=== PATIENT | female | born 1980 | race Caucasian/White ===

== ENCOUNTER 2019-06-08 07:59 | Inpatient (IN) | payer BC ==
[2019-05-30 14:59] VITALS: BMI 22.3
--- NOTE | 2019-06-02 10:26 | HP ---
Admitting History and Physical - Primary Care Physician PCP: Vega Castillo - Admission Chief Complaint: Breast cancer gene positive History of Present Illness: 38 year old prmenapausal female with strong family H/O breast cancer and BRCA2 positive. 04/28/2019 Mammogram showed 4 mm assymetry right lateral retroareolar area. Us favored complicated cyst but additional imaging was advised. Right diagnostic mammogram and US 04/2019 showed this area effaced on spot compression and targeted US confirms 4mm cyst cluster rght 9:00 2 cm FN Birad 2. Breast MRI 12/12/2018 Birad1. History Source: Patient Limitations to Obtaining History: No Limitations - Past Medical History ...LMP: 04/25/19 - Smoking History Smoking history: Never smoked Have you smoked in the past 12 months: No - Alcohol/Substance Use Hx Alcohol Use: No Home Medications - Allergies Allergies/Adverse Reactions: Allergies Allergy/AdvReac Type Severity Reaction Status Date / Time No Known Allergies Allergy Verified 05/30/19 14:59 - Home Medications Home Medications: Ambulatory Orders NK [No Known Home Medication] 05/30/19 Family Medical History Family Hx Cancer: Mother (Bilateral breast cancer 46/64 BRCA+) Other Family History: maternal aunt breast ca 62 and ovarian at 69. mat 2nd cousins breast ca 40's and 60's. mat 3rd cousin breast ca 40's BRCA 2 + Physical Examination Constitutional: Yes: No Distress Breast(s): Yes: Other (B sized breast cups no palpable masses or adenopathy bilaterally symmetrical) Problem List - Problems (1) BRCA gene positive Code(s): Z15.01 - GENETIC SUSCEPTIBILITY TO MALIGNANT NEOPLASM OF BREAST; Z15.09 - GENETIC SUSCEPTIBILITY TO OTHER MALIGNANT NEOPLASM Assessment/Plan Bilateral total mastectomies alloderm implant reconstruction
[2019-06-08] MEDS ORDERED: LIDOCAINE HCL 1%, 10 MG/ML (20ML VIAL) ONE (09:20)
[2019-06-08] MEDS ORDERED: BUPIVACAINE HCL 0.25% 125 MG/50 ML VIAL ONE (09:20)
[2019-06-08] MEDS ORDERED: BUPIVACAINE LIPOSOME/PF (EXPAREL) 266 MG/20 ML VIAL ONE (09:22)
[2019-06-08] MEDS ORDERED: fentaNYL CITRATE 250 MCG/5 ML VIAL ONE (10:01)
[2019-06-08] MEDS ORDERED: ROCURONIUM BROMIDE 50 MG/5 ML SYRINGE ONE ×2 (10:02→12:03)
[2019-06-08] MEDS ORDERED: PROPOFOL 20 ML ONE ×6 (10:02→12:38)
[2019-06-08] MEDS ORDERED: MIDAZOLAM HCL 2 MG/2 ML SINGLE DOSE VIAL ONE (10:02)
[2019-06-08] MEDS ORDERED: ceFAZolin SODIUM 1 GM VIAL ONE (10:46)
[2019-06-08] MEDS ORDERED: DESFLURANE GAS 240 ML BOTTLE IH ONE (10:46)
[2019-06-08] MEDS ORDERED: ONDANSETRON 4 MG/2 ML VIAL ONE (10:46)
[2019-06-08] MEDS ORDERED: KETOROLAC TROMETHAMINE 30 MG/1 ML VIAL ONE (10:46)
[2019-06-08] MEDS ORDERED: DEXAMETHASONE SOD PHOSPHATE 4 MG/1 ML VIAL ONE (10:46)
[2019-06-08] MEDS ORDERED: ePHEDrine SULFATE 50 MG/1 ML AMPULE ONE (11:01)
[2019-06-08] MEDS ORDERED: LIDOCAINE 1%/EPI 1:100000 (20 ML MULTI DOSE VIAL) ONE (12:31)
[2019-06-08] MEDS ORDERED: BUPIVACAINE LIPOSOME/PF (EXPAREL) 266 MG/20 ML VIAL NR ONE (12:50)
[2019-06-08] MEDS ORDERED: BUPIVACAINE HCL/PF 0.25% (2.5MG/ML) 10 ML VIAL IJ ONE (12:50)
[2019-06-08] MEDS ORDERED: ONDANSETRON 4 MG/2 ML VIAL IVPUSH PRN ×2 (13:20→14:35)
[2019-06-08] MEDS ORDERED: ZOLPIDEM TARTRATE 5 MG TABLET PO PRN (13:20)
[2019-06-08] MEDS ORDERED: DEXTROSE 5%-0.45% SALINE 1,000 ML IV SCH (13:30)
--- NOTE | 2019-06-08 13:49 | OP ---
Operative Note - Note: Operative Date: 06/08/19 Pre-Operative Diagnosis: Genetic predispostion for breast cancer Operation: Bilateral prophylactic mastectomy. Bilateral breast reconstruction with alloderm and implants Post-Operative Diagnosis: Same as Pre-op Surgeon: Vega Castillo Gold Marker: Castillo Peralta Anesthesiologist/HEALTH TEACHER: Benton Pradhan Anesthesia: General Drains & Tubes with Location: Bilateral breast drains x 2 Operative Report Dictated: Yes
--- NOTE | 2019-06-08 13:50 | SURG ---
Surgery Movement Assembler Note Movement Assembler: Natalio Miller PA-C Date of Service: 06/08/19 Diagnosis: Genetic predisposition for breast cancer Procedure: Bilateral breast reconstruction with alloderm and implants s/p mastectomy I was present for the entirety of the operative procedure. For further detail, please refer to operative report. Visit type - Case Type Case Type: Scheduled - Emergency Emergency Visit: No - New patient This patient is new to me today: Yes Date on this admission: 06/08/19 - Critical Care Critical Care patient: No
[2019-06-08] MEDS ORDERED: PROMETHAZINE HCL 25 MG/1 ML VIAL IVPUSH PRN (14:35)
[2019-06-08] MEDS ORDERED: oxyCODONE HCL 5 MG TABLET PO PRN (14:35)
[2019-06-08] MEDS ORDERED: ACETAMINOPHEN 1000 MG/100 ML VIAL (NON FORMULARY) IVPB PRN (14:36)
[2019-06-08] MEDS ORDERED: LACTATED RINGERS SOLUTION 1,000 ML IV SCH (14:45)
[2019-06-08] MEDS: CEFAZOLIN 1 GM/D5W 1 GM/50 ML BAG IVPB SCH ×2 (15:45→20:34)
[2019-06-08] MEDS: oxyCODONE HCL 5 MG TABLET PO PRN (21:41)
[2019-06-09] MEDS: ACETAMINOPHEN 325 MG TABLET (FP) PO PRN ×2 (02:04→23:10)
[2019-06-09] MEDS: CEFAZOLIN 1 GM/D5W 1 GM/50 ML BAG IVPB SCH ×4 (02:04→21:15)
[2019-06-09] MEDS: oxyCODONE HCL 5 MG TABLET PO PRN ×4 (02:14→23:09)
[2019-06-09 07:45] LABS: HEMATOCRIT 28.5 % (32.4-45.2); HEMOGLOBIN 9.4 GM/dl (10.7-15.3); MCHC 32.8 g/dl (32.0-36.0); MEAN CELL VOLUME 91.5 fl (80-96); MEAN PLT VOLUME 8.7 fl (7.5-11.1); PLATELET COUNT 234 K/MM3 (134-434); RBC 3.12 M/mm3 (3.60-5.2); RDW 12.6 % (11.6-15.6); WHITE BLOOD COUNT 9.6 K/mm3 (4.0-10.8)
--- NOTE | 2019-06-09 08:01 | PN ---
Progress Note (short form) - Note Progress Note: Post op day#1.S/P Bilateral mastectomy with reconstruction under Ga uneventful.Patient stable and has some pain for which she is on medication.No any anesthesia related problem.Patient DC from the anesthesia care.
--- NOTE | 2019-06-09 08:07 | PN ---
Progress Note (short form) - Note Progress Note: POD 1, s/p Bilateral prophylactic mastectomy. Bilateral breast reconstruction with alloderm and implants Pt seen and examined. Reports she is feeling well. Pain is well controlled. Has been oob to the restroom. Voiding without issue. Tolerated dinner with no n/v. Denies cp/sob. Vital Signs Temp 98.7 F 06/09/19 05:00 Pulse 96 H 06/09/19 05:00 Resp 18 06/09/19 05:00 BP 91/50 L 06/09/19 05:00 Pulse Ox 93 L 06/09/19 01:00 Intake & Output 06/08/19 06/08/19 06/09/19 11:59 23:59 11:59 Intake Total 1200 1575 Output Total 480 470 Balance 1200 1095 -470 Weight 122 lb Intake: IV 1200 1075 Lactated Ringers Solution 375 1,000 ml @ 125 mls/hr IV ASDIR BEN Rx#: [id number] IVPB 100 Oral 400 Output: Drainage 80 220 #1 15 #2 100 #3 100 #4 5 Urine 400 250 Void 400 250 Other: Voiding Method Toilet Height 5 ft 2 in Body Mass Index (BMI) 22.3 Weight Measurement Method Standing Scale CBC, BMP 06/09/19 07:35 Gen: awake, alert, nad Resp: unlabored on RA Chest: + b/l ecchymosis, + b/l edema, skin flaps/areola well perfused and viable. Dressings c/d/i, inframammary crease steristrips intact with no erythema or drainage, b/ll axilla wounds with steristrips intact, clean and dry. Drains x4 in place, tubing stripped, scant serosanguinous drainage in reservoirs. A/P: 38 y/o F w/ strong family H/O breast cancer and BRCA2 positive, now POD 1, s/p Bilateral prophylactic mastectomy. Bilateral breast reconstruction with alloderm and implants. afebrile, slightly tachy (likly due to pain?), bp in 90s-low 100s Rey outputs #1->5ml overnight, 15ml since OR #2->30ml overnight, 100ml since OR #3->30ml overnight, 100ml since OR #4->0ml overnight, 5ml since OR Dressings changed, tubing stripped -Labs stable -Monitor and record drain outputs -Keep bra/dressings c/d/i -Remainder of care per Dr Castillo d/w attending Dr Peralta
--- NOTE | 2019-06-09 09:39 | PN ---
Progress Note, Physician Chief Complaint: S/P bilateral mastectomy with implant and alloderm reconstruction POD#1 History of Present Illness: Patient was seen at the bedside and reports discomfort near upper outer poles bilaterally but is otherwise tolerating po well. - Current Medication List Current Medications: Active Medications Acetaminophen (Tylenol -) 650 mg PO Q4H PRN PRN Reason: FEVER Last Admin: 06/09/19 02:04 Dose: 650 mg Acetaminophen (Ofirmev Injection -) 1,000 mg IVPB Q6H PRN PRN Reason: PAIN LEVEL 6-10 Last Admin: 06/08/19 20:22 Dose: 1,000 mg Cefazolin Sodium (Ancef 1 Gm Premixed Ivpb -) 1 gm in 50 mls @ 100 mls/hr IVPB Q6H-IV BEN Stop: 06/15/19 15:44 Last Admin: 06/09/19 08:25 Dose: 100 mls/hr Dextrose/Sodium Chloride (D5-1/2ns -) 1,000 mls @ 100 mls/hr IV ASDIR BEN Ondansetron HCl (Zofran Injection) 4 mg IVPUSH Q6H PRN PRN Reason: NAUSEA AND/OR VOMITING Last Admin: 06/08/19 21:41 Dose: 4 mg Oxycodone HCl (Roxicodone -) 5 mg PO Q4H PRN PRN Reason: PAIN LEVEL 6-10 Last Admin: 06/09/19 08:24 Dose: 5 mg Zolpidem Tartrate (Ambien -) 5 mg PO HS PRN PRN Reason: Insomnia - Objective Vital Signs: Vital Signs Temperature 98.7 F 06/09/19 05:00 Pulse Rate 96 H 06/09/19 05:00 Respiratory Rate 18 06/09/19 05:00 Blood Pressure 91/50 L 06/09/19 05:00 O2 Sat by Pulse Oximetry (%) 95 06/09/19 08:45 Constitutional: Yes: Well Nourished, Calm Breast(s): Yes: Other (Flaps with minimal ecchymosis. Nipple/areola complex with good color. Dressing C/D/I. JPs with serosanginous discharge bilaterally.) Labs: CBC, BMP 06/09/19 07:35 Problem List - Problems (1) BRCA gene positive Code(s): Z15.01 - GENETIC SUSCEPTIBILITY TO MALIGNANT NEOPLASM OF BREAST; Z15.09 - GENETIC SUSCEPTIBILITY TO OTHER MALIGNANT NEOPLASM Assessment/Plan A: S/P bilateral mastectomy with implant reconstruction POD#1 Doing well after surgery P: OOB today with assistance AXBX and Pain control as ordered STEVE training Plan for discharge in am
[2019-06-10] MEDS: CEFAZOLIN 1 GM/D5W 1 GM/50 ML BAG IVPB SCH ×2 (02:10→08:43)
[2019-06-10] MEDS: oxyCODONE HCL 5 MG TABLET PO PRN (08:41)
[2019-06-10] MEDS: ACETAMINOPHEN 325 MG TABLET (FP) PO PRN (08:42)
[2019-06-10 09:35] VITALS: BP 100/60; PULSE 68; TEMP 97.8
--- NOTE | 2019-06-12 15:51 | OP ---
DATE OF OPERATION: 06/08/2019 PREOPERATIVE DIAGNOSIS: Genetic susceptibility to breast cancer, BRCA2 positive. POSTOPERATIVE DIAGNOSIS: Genetic susceptibility to breast cancer, BRCA2 positive. PROCEDURE: Bilateral total nipple-sparing mastectomies through an inframammary approach with bilateral direct implant reconstruction using acellular dermal matrix. ANESTHESIA: General endotracheal anesthesia. PRIMARY SURGEON: Pat Daly M.D. SOILS TECHNICIAN: Nathaniel Lowe Primary surgeon for the bilateral direct implant reconstructions with acellular dermal matrix is Pat Peralta M.D., with his assistant strength coach Nathaniel Smith COMPLICATIONS: There were no complications. DESCRIPTION OF PROCEDURE: Briefly, the patient is a 38-year-old G2, P2 premenopausal female of [place] descent who has a family history with her mother who had bilateral breast cancer at age 46 and age 54, and her maternal aunt had breast cancer at age 62, and ovarian cancer at age 69. She has 2 maternal second cousins who had breast cancer and a maternal third cousin tested BRCA2 positive. The patient herself tested BRCA2 positive in August of 2018. She had negative mammography in May of 2018 and a negative MRI in November of 2018. She was seen in the office regarding risk reduction strategies for breast cancer and decided to go forward with bilateral risk reduction prophylactic nipple sparing mastectomies. She was well aware of the risks of leaving some breast tissue . We do retroareolar biopsies at the time of surgery; if these show cancer, we would remove the nipples. She understood the lack of any evidence shown for doing prophylactic sentinel lymph node biopsy. All risks, complications of the procedure were explained to the patient including risk of skin flap necrosis, nipple loss, hematoma, and infection, and she consented to move forward with the procedure. She was seen by Dr. Peralta preoperatively regarding the implant reconstruction. The patient is brought in for the procedure on June 08, 2019. In the holding area, site verification was made, and informed consent was obtained. She was marked preoperatively by the plastic surgeon. She was brought in to the operating room and laid on the OR table in the supine position. Venodynes were placed on the lower extremities prior to induction. She received 2 g of Ancef prior to incision. Both breasts were sterilely prepped and draped in the usual fashion, and she underwent general endotracheal anesthesia. The left mastectomy was first performed after timeout was performed. An inframammary incision was made about 9 cm in length in the inframammary fold, and then skin edges were everted, and the breast was retracted inferiorly using Winona clamps. The skin flap was raised using the PEEK radiofrequency device superiorly to the level of the clavicle, medially to the level of the sternum, laterally to the level of the latissimus, and inferiorly below the level of the inframammary fold. The breast was taken out off pectoralis major muscle using electrocautery from inferomedial to superolateral, completely removed intact. The specimen was removed and oriented with a long lateral, short superior suture, and sent to pathology in formalin as specimen. The skin flaps were inspected to remove all gross breast tissue. A retroareolar biopsy was taken underneath the left nipple areolar complex, sent for frozen section and came back negative so the nipple was spared. Hemostasis was achieved, and the wound was copiously irrigated with warm, sterile saline. At this point the right nipple sparing mastectomy was performed through a symmetrical 9-cm inframammary incision on the right side in the inframammary fold. Skin edges were everted and the breast was retracted inferiorly using Winona clamps. The skin flap was raised using the PEEK radiofrequency device superiorly to the level of the clavicle, medially to the level of the sternum, laterally to the level of the latissimus, and inferiorly to the level of the inframammary fold. The breast was taken down off the pectoralis major muscle using electrocautery from inferomedial to superolateral and completely removed intact. It was oriented with a long lateral, short superior suture, and weighed and then sent to pathology in formalin as right breast total mastectomy. Skin flaps were trimmed for a good cosmetic result, and they were inspected to remove all gross remaining breast tissue. A retroareolar biopsy was taken underneath the right nipple areolar complex, sent for frozen section, came back negative, so the right nipple was spared. Hemostasis was achieved, and the wound was copiously irrigated with warm, sterile saline. At this point, Dr. Peralta became the primary surgeon, and he performed bilateral subpectoral direct implant reconstruction using acellular dermal matrix sutured into the inferolateral aspects of both pectoralis major muscles to allow for the direct implant reconstruction. Two Mao drains were placed around each implant and brought through separate stab incisions on the lateral skin folds and secured in place using 3-0 nylon suture. All wounds will be closed by plastic surgery using dissolvable monofilament suture. Mastisol Steri-Strips were applied over the wounds, and she will be extubated and brought to the post anesthesia care unit. All sponge and needle counts were correct at this point in the case, and estimated blood loss was about 100 mL. She was hemodynamically stable throughout. The patient will be admitted postoperatively for pain and wound management. She did have Exparel as a chest wall block along the pectoralis muscle chest wall and subcutaneous tissues for postoperative pain relief. We did use the SPY skin perfusion device during the case showing good skin perfusion on both skin flaps and nipple areolar complexes at the end of the implant reconstruction. PAT DALY M.D. [id number]
--- NOTE | 2019-06-12 15:59 | PATH ---
Surgical Pathology Report Patient Name: ALEE RUCKER Med. Rec. #: [id number] /Age/Gender: 1980 (Age: 38) / F Account: [id number] Location: [facility] Taken: 06/08/2019 Received: 06/08/2019 Reported: 06/12/2019 Physicians: Vega Castillo M.D. Specimen(s) Received A: RIGHT BREAST RETROAREOLAR BIOPSY (FS) B: LEFT BREAST RETROAREOLAR BIOPSY (FS) C: RIGHT BREAST MASTECTOMY D: LEFT BREAST MASTECTOMY E: LEFT BREAST EXTRA MAMMARY NIPPLE F: RIGHT BREAST EXTRA MAMMARY NIPPLE Clinical History Genetic susceptibility of breast cancer Intraoperative Consult Diagnosis A. Right breast retroareolar biopsy, frozen section: Negative for malignancy. B. Left breast retroareolar biopsy, frozen section: Negative for malignancy. Sumit Escobar M.D. 06/08/19 Final Diagnosis A. RETROAREOLA, RIGHT BREAST, BIOPSY (FS): BENIGN BREAST TISSUE; NEGATIVE FOR MALIGNANCY. B. RETROAREOLA, LEFT BREAST, BIOPSY (FS): BENIGN BREAST TISSUE; NEGATIVE FOR MALIGNANCY. C. BREAST, RIGHT, NIPPLE-SPARING MASTECTOMY: BENIGN BREAST TISSUE SHOWING FIBROCYSTIC CHANGES INCLUDING MICROCYSTS WITH APOCRINE METAPLASIA AND USUAL DUCTAL HYPERPLASIA (UDH) AND COLUMNAR CELL CHANGE. D. BREAST, LEFT, NIPPLE-SPARING MASTECTOMY: BENIGN BREAST TISSUE SHOWING FIBROCYSTIC CHANGES INCLUDING MICROCYSTS AND USUAL DUCTAL HYPERPLASIA (UDH) AND FIBROADENOMATOID CHANGE. E. EXTRAMAMMARY NIPPLE, RIGHT BREAST, EXCISION: EXTRAMAMMARY NIPPLE. F. THE EXTRAMAMMARY NIPPLE, LEFT BREAST, EXCISION: EXTRAMAMMARY NIPPLE. Electronically Signed Marisol Escobar M.D. Gross Description A. Received fresh for frozen section evaluation, labeled "right breast retroareolar biopsy" is a 0.5 x 0.4 x 0.2 cm portion of red-cadet tissue. Frozen section is performed on the specimen. The frozen section residue is entirely submitted in one cassette. B. Received fresh for frozen section evaluation, labeled "left breast retroareolar biopsy" is a 0.8 x 0.6 x 0.2 cm portion of red-cadet tissue. Frozen section is performed on the specimen. The frozen section residue is entirely submitted in one cassette. C. Received in formalin, labeled "right mastectomy," is a 212 gram, 12.5 x 12.5 x 3.0 cm. right mastectomy specimen with a short suture marking the superior aspect and a long suture marking the lateral aspect of the specimen, per the surgeon. There is no skin or nipple present. The deep margin is inked black and the anterior soft tissue margin is inked blue. The specimen is serially sectioned from lateral to medial. Sectioning reveals multifocal dense white fibrous tissue. Public Administration Teacher sections are submitted in 14 cassettes as follows: 1-3-upper outer quadrant; 4-6-lower outer quadrant; 7-9-upper inner quadrant; 10-12-lower inner quadrant; 13-anterior soft tissue margin; 14-deep margin. D. Received in formalin, labeled "left breast mastectomy," is a 229 gram, 15.0 x 11.5 x 3.2 cm. left mastectomy specimen with a short suture marking the superior aspect and a long suture marking the lateral aspect of the specimen, per the surgeon. There is no skin or nipple present. The deep margin is inked black and the anterior soft tissue margin is inked blue. The specimen is serially sectioned from medial to lateral. Sectioning reveals abundant dense, white, focally firm fibrous tissue. Public Administration Teacher sections are submitted in 15 cassettes as follows: 1-3-upper outer quadrant; 4-6-lower outer quadrant; 7-8-upper inner quadrant; 9-13-lower inner quadrant; 14-anterior soft tissue margin; 15-deep margin. Time to formalin fixation: 30 minutes Total formalin fixation time: Approximately 61 hours. E. Received in formalin labeled "right breast extramammary nipple," is a 0.6 x 0.3 cm cadet-brown, elliptical, unoriented portion of skin excised to depth of 1.0 cm. No discrete epidermal lesion is identified. The specimen is bisected and entirely submitted in one cassette. F. Received in formalin labeled "left breast extramammary nipple," is a 0.5 x 0.2 cm cadet, elliptical, unoriented portion of skin excised to depth of 1.0 cm. No discrete epidermal lesion is identified. The specimen is bisected and entirely submitted in one cassette. AE/06/08/2019 ebram/06/08/2019
--- NOTE | 2019-06-28 11:07 | OP ---
DATE OF OPERATION: 06/08/2019 This is a combined dictation with Dr. Vega Castillo. 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 POSTOPERATIVE DIAGNOSES: 1. Bilateral acquired chest wall deformity status post bilateral mastectomies. 2. Personal history of genetic carcinoma. 3. Absent bilateral breasts. The patient underwent bilateral mastectomies. This was dictated under separate cover by Dr. Castillo. OPERATIVE PROCEDURE: 1. Right breast immediate reconstruction utilizing immediate insertion of silicone breast implant, AlloDerm reconstruction and mesh placement. 2. Left breast immediate reconstruction utilizing immediate insertion of silicone breast implant, AlloDerm reconstruction and mesh placement. 3. Intravenous injection of indocyanine green dye and intraoperative diagnostic evaluation of noncoronary intraoperative fluorescein vascular angiography x2 as well as interpretation of angiogram intraoperatively. OPERATIVE INDICATION: Patient is a 38-year-old female who was brought to the operating room by Dr. Vega Castillo for bilateral mastectomies for a significant genetic history of breast carcinoma. The patient elected to undergo bilateral mastectomies with the above reconstructive procedure in a prepectoral position. The risks and benefits of surgical versus nonsurgical alternatives as well as material complications were described to the patient on multiple occasions preoperatively. She was marked in the standing position preoperatively in the holding area and all questions were asked and answered. OPERATIVE PROCEDURE IN DETAIL: The patient was taken to the operating room by Dr. Castillo where she was placed supine on the operating room table. Both arms were extended and padded. Venodyne boots were placed and all areas were protected and padded. Dr. Castillo will dictate his portion of the operation under separate cover. At this point Dr. Castillo performed bilateral mastectomies with an inframammary incision on both the right and left breasts, which will be dictated separately. The right breast tissue removed was 218 grams of tissue; the left breast tissue removed was 237 grams of tissue. Upon completion of the mastectomies, the wounds were copiously irrigated and hemostasis was meticulously obtained throughout the pocket and both chest tillman. On the back table, as the mastectomies were being performed, I created reconstructive procedures by utilizing a full coverage reconstructive implant. Sientra smooth, round high-profile, style 107, 505 mL implants were used for the reconstruction. Covidien ProGrip mesh was placed in a circular fashion, cutting out the mesh slightly larger than the back side of the implant. The gripping portion of the mesh was placed away from the implant in order to adhere to the pectoralis muscle. At this point, a sheet of AlloDerm was selected. In this case, a 16 x 20 perforated thick AlloDerm was used to cover the anterior surface of the entire implant and was then sutured down to the underlying mesh over the implant and suturing it on the back side. Multiple 2-0 Vicryl sutures were placed around the circumference of the implant, creating an entire enclosure for the new implant device. Triple-antibiotic solution and Betadine were used to cover this device and the AlloDerm was soaked in triple-antibiotic solution x3. Both devices were created on the back table and ready for reconstruction. The exact same procedure was carried out symmetrically on the opposite left side in order to create the same device with the same size Sientra 107, 505 mL high-profile implant. Once the mastectomies were completed, the left breast was attended to first. The device was transferred to the left chest wall and the rim which, extended beyond the implant itself, was then attached to the chest wall using 0 V-Loc suture in a running fashion from the medial to the lateral side to tack the mesh down to the pectoralis muscle at the inframammary fold and laterally and medially in order to prevent motion of the device. At this point, good shape and contour were seen in the shape of the breast. Skin flaps showed viability. The SPY intraoperative angiogram was performed at this point by injecting 4 mL of indocyanine green dye into the intravascular system. An intraoperative angiogram was then used to show adequate blood flow to the skin and nipple-areolar complex on both chest tillman. This was repeated before placement of the implant and again after the implant was placed. Both showed good blood flow. The SPY imaging system was brought into the field. The skin flowed to the right and left breasts and the nipple-areolar complex. The entire skin flaps were evaluated and seen to be viable with good blood flow. The patient had the second implant placed into the right chest wall in the exact same fashion, suturing a 0 V-Loc suture in running fashion from medial to lateral, attaching the posterior aspect of the mesh down to the chest wall. Once the implants were verified in good position with good shape and contour seen, the skin flaps were draped over the implant and down into their new anatomic position. The skin edges were trimmed. A 15-Mao drain was threaded through a separate stab wound around the entire circumference of the implant itself and sutured into position. Again, copious irrigation and hemostasis were obtained and then attention was turned to the closure. Using 3-0 PDS suture on the deep dermis and tissue, the deep layer was repaired with interrupted sutures. Then, a 4-0 Biosyn suture was used in a subcuticular fashion to repair the skin. Biopatch and Dermabond with Steri-Strips were placed over the drain and suture line. A compression dressing with Fluff dressings, ABD gauze and a Surgi-Bra were placed. The patient was then awakened, extubated and transferred to the recovery room in satisfactory condition, showing excellent contour and result at this point. MD LUIS EDUARDO [id number]
== END 2019-06-10 13:03 | disposition home or self-care (01) | DRG 585 ==
LOC: FM/S 07:59
PROVIDERS: ADMIT Surgery Surgical Oncology; ATTEND Surgery Surgical Oncology
PROC: 4A1GXSH Monitoring of Skin and Breast Vascular Perfusion using Indocyanine Green Dye, External Approach (ICD-10-PCS; 2019-06-08)
PROC: 0HTV0ZZ Resection of Bilateral Breast, Open Approach (ICD-10-PCS; principal; 2019-06-08 11:02)
PROC: 0HRV0JZ Replacement of Bilateral Breast with Synthetic Substitute, Open Approach (ICD-10-PCS; 2019-06-08 11:02)
DX: Z40.01 Encounter for prophylactic removal of breast (principal); Z15.01 Genetic susceptibility to malignant neoplasm of breast; Z90.13 Acquired absence of bilateral breasts and nipples
CPT/HCPCS: 36415; 84703; 85027; 88304-TC; 88307-TC; 88331-TC; 94760; J0131